=== PATIENT | female | born 1955 | race Caucasian/White ===

== ENCOUNTER → 2016-08-13 | Outpatient (CLI) | payer OTHER | LOC: FIMAGING 08:22 | PROVIDERS: ATTEND Obstetrics & Gynecology | DX: Z12.31 Encounter for screening mammogram for malignant neoplasm of breast (principal) | CPT/HCPCS: G0202 ==

== ENCOUNTER 2017-01-09 10:33 | Day surgery (SDC) | payer OTHER ==
[~2017-01-09 10:33] MED LIST: ceFAZolin 2 GM/SWFI 2 GM/20 ML SYR IVP ONE
[2017-01-09] MEDS ORDERED: LR 1,000 ML IV ONE (11:20)
[2017-01-09] MEDS ORDERED: LIDOCAINE 1% 2 ML INJ ID PRN (11:20)
[2017-01-09] MEDS ORDERED: LIDOCAINE 1% 300 MG/30 ML SDV ONE (11:21)
[2017-01-09] MEDS ORDERED: BUPIVACAINE 0.5% 30 ML SDV ONE (11:21)
[2017-01-09] MEDS ORDERED: ROPIVACAINE HCL 20 MG/10 ML INJ EP ONE (11:21)
[2017-01-09] MEDS ORDERED: BACITRACIN 50,000 UNITS/10 ML SYR IRR ONE (11:22)
[2017-01-09] MEDS ORDERED: DEXAMETHASONE 4 MG/ML VIAL ONE ×2 (11:22→13:08)
[2017-01-09] MEDS ORDERED: ROPIVACAINE HCL 150 MG/30 ML INJ ONE (11:38)
[2017-01-09] MEDS ORDERED: ceFAZolin 2 GM/SWFI 20 ML SYR IVP ONE (11:50)
[2017-01-09] MEDS ORDERED: MIDAZOLAM 2 MG/2 ML VIAL IVP ONE (11:57)
--- NOTE | 2017-01-09 11:57 | PDANEPAE ---
ANE History of Present Illness 61 year old female w/ PMHx of breast cancer (limb precautions on left upper extremity; patient did receive chemotherapy and is a known difficult IV start) presents for excision of soft tissue mass from bottom of left foot. ANE Past Medical History - Cardiovascular History Hx Hypertension: No Hx Arrhythmias: No Hx Chest Pain: No Hx Coronary Artery / Peripheral Vascular Disease: No Hx CHF / Valvular Disease: No Hx Palpitations: No Cardiovascular History Comment: HX- BBB - Pulmonary History Hx COPD: No Hx Asthma/Reactive Airway Disease: No Hx Recent Upper Respiratory Infection: No Hx Oxygen in Use at Home: No Hx Sleep Apnea: No Sleep Apnea Screening Result - Last Documented: Negative Pulmonary History Comment: EXERCISE INDUCED ASTHMA IN PAST - NONE FOR 7 YRS - Neurologic History Hx Cerebrovascular Accident: No Hx Seizures: No Hx Dementia: No - Endocrine History Hx Diabetes: Yes Hypothyroid: Yes Hyperthyroid: No Obesity: no Endocrine History Comment: HYPOTHYROID - Renal History Hx Renal Disorders: No - Liver History Hx Hepatic Disorders: No - Neurological & Psychiatric Hx Hx Neurological and Psychiatric Disorders: No - Cancer History Hx Cancer: Yes Cancer History Comment: BREAST CA. COLON CA - Congenital Disorder History Hx Congenital Disorders: No - GI History GERD: no Hx Gastrointestinal Disorders: No - Other Health History Other Health History: NEG - Chronic Pain History Chronic Pain: No - Surgical History Prior Surgeries: HYSTERECTOMY. PARTIAL COLECTOMY & RECTOCELE. RECTOCELE REPAIR. LUMPECTOMY L BREAST ANE Review of Systems Review of systems is: negative Review of Systems: - Exercise capacity Exercise capacity: >=4 METS METS (RN): 5 METS ANE Patient History - Allergies Allergies/Adverse Reactions: wheat Allergy (Intermediate, Verified 10/12/12 14:15) PUFFY, SLUGGISH aspirin [Aspirin] Allergy (Verified 06/07/10 16:43) - Home Medications Home medications: home medication list seen and reviewed Home Medications: LEVOTHYROXINE SODIUM [Tirosint 75 mcg] 75 mcg PO DAILY 11/14/12 [Last Taken Unknown] Ibuprofen 12/16/16 [Last Taken Unknown] - NPO status NPO Status: no food or drink >8 hours NPO Since - Liquids (Date): 01/09/17 NPO Since - Liquids (Time): 08:00 NPO Since - Solids (Date): 01/08/17 NPO Since - Solids (Time): 20:00 - Anes Hx Anes Hx: post operative nausea - Smoking Hx Smoking Status: Former smoker - Alcohol Use Alcohol Use: Occasionally - Family Anes Hx Family Anes Hx: neg - N/A Family Hx Anesthesia Complications: NEG ANE Labs/Vital Signs - Vital Signs Vital Signs: reviewed preoperatively; see RN documention for details Blood Pressure: 123/85 Heart Rate: 56 Respiratory Rate: 16 O2 Sat (%): 97 Height: 162.56 cm Weight: 58.06 kg ANE Physical Exam - Airway Neck exam: FROM Mallampati Score: Class 2 - Pulmonary Pulmonary: no respiratory distress - Cardiovascular Cardiovascular: regular rate and rhythym - ASA Status ASA Status: II ANE Anesthesia Plan Anesthesia Plan: MAC Total IV Anesthesia: Yes
[2017-01-09] MEDS ORDERED: SCOPOLAMINE HYDROBROMIDE 1 MG/3 DAYS PATCH TD SCH (12:00)
[2017-01-09] MEDS ORDERED: PROPOFOL/EMULSION 500 MG/50 ML BOTTLE IV ONE ×2 (12:22→12:56)
--- NOTE | 2017-01-09 12:26 | PDHPUP ---
History & Physical Update H&P update statement: This history and physical update is based on an assessment of the patient which was completed after admission or registration (within 24 hours), but prior to the surgery/procedure.
[2017-01-09] MEDS ORDERED: ONDANSETRON 4 MG/2 ML VIAL ONE (13:08)
[2017-01-09] MEDS ORDERED: HYDROCODONE/APAP 5/325 TAB PO PRN (13:14)
[2017-01-09] MEDS ORDERED: fentaNYL 100 MCG/2 ML INJ IVP PRN (13:14)
[2017-01-09] MEDS ORDERED: LR 500 ML IV PRN (13:14)
[2017-01-09] MEDS ORDERED: NALOXONE HCL 0.4 MG/ML INJ IVP PRN (13:14)
[2017-01-09] MEDS ORDERED: ONDANSETRON 4 MG/2 ML VIAL IVP PRN ×2 (13:14→13:50)
--- NOTE | 2017-01-09 13:48 | POSTOPPROG ---
Post Op Note Date of Operation: 01/09/17 Surgeon: Anya Tapia Desktop Support Technician: Grisel Tapia Pre-op Diagnosis: calcified mass plantar left foot Post-op Diagnosis: same Indication: pain Procedure: excision of mass plantar left foot Findings: Well defined calcified/osseous mass Inf/Abcess present in the surg proc area at time of surgery?: No Depth: Superfical (Skin SQ) EBL: Minimal Complications: none Specimen(s): mass, send to pathology
[2017-01-09] MEDS ORDERED: OXYCODONE/APAP 5/325 TAB PO PRN (13:50)
[2017-01-09] MEDS ORDERED: ONDANSETRON DISINTEGRATING 4 MG TAB PO PRN (13:50)
--- NOTE | 2017-01-09 13:52 | POSTANESTH ---
Post Anesthetic Evaluation Cardiovascular Status: Normal, Stable, Similar to Pre-Op Cond Respiratory Status: Normal, Stable, Similar to Pre-op Cond. Level of Consciousness/Mental Status: Can Participate in Eval, Mildly Sleepy, Arousable Pain Control: Adequate, Prn Tx Ordered Nausea/Vomiting Control: Adequate, Prn Tx Ordered Complications Possibly Related to Anesthesia: None Noted
[2017-01-09 14:56] VITALS: RESP 16; TEMP 207.5
[2017-01-09 15:08] VITALS: BP 122/75; PULSE 64; O2SAT 98
--- NOTE | 2017-01-09 23:59 | GOP ---
[f rep st] OPERATIVE REPORT DATE OF OPERATION: SURGEON: Anya Tapia DPM BIT SANDER: Marcelina Webster PREOPERATIVE DIAGNOSIS: Painful mass plantar aspect of the left foot. POSTOPERATIVE DIAGNOSIS: Painful mass plantar aspect of the left foot, mass is calcified with some trabeculation PROCEDURE PERFORMED: Excision of mass plantar aspect 2nd metatarsophalangeal joint, left foot. FINDINGS: well-defined mass with some white smooth glossy borders INDICATIONS: The patient presented to the hospital approximately an hour and a half prior to foot surgery after having been n.p.o. past midnight. The patient' s preoperative history and physical and all lab studies were reviewed and there were no contraindications to the proposed procedure. The patient was given Ancef 2 g IV 1/2-hour prior to foot surgery. DESCRIPTION OF PROCEDURE: The patient was taken to the OR and placed on the OR table in a supine position where the appropriate anesthetic agents were administered. This was supplemented with a local block to the left foot utilizing a total of 6 cc of 0.5% Marcaine plain, 0.8 cc of Naropin 0.2%, and 6 cc of 1% lidocaine plain. Anesthetic block was given to the posterior tibial nerve as it courses through the tarsal tunnel and in a Tolliver block fashion to the base of the 2nd metatarsal. Left lower extremity was then prepped and draped in the usual aseptic fashion covered with a sterile stockinette. A sterile pneumatic ankle tourniquet was applied and padded well underneath with Webril. Utilizing elevation with overlying Esmarch bandage, the left foot was exsanguinated and the tourniquet was inflated to a pressure of 225 mmHg. The foot was lowered to the orthopedic table. Attention was then directed to the plantar aspect of the 2nd metatarsal head region where an approximate 4 cm curvilinear incision was made. There was a thick callus to the plantar aspect of the 2nd metatarsal head and the incision was made medial to the thick callus, but curved laterally at the distal end of the incision and just distal to the 2nd metatarsophalangeal joint and curved laterally in a mild fashion proximal to the 2nd metatarsal head. Incision was deepened through the subcutaneous tissues to the level of the deep capsular tissues. Plantar skin incision: The incision was deepened through the subcutaneous tissues to the level of the deep capsular tissues, taking care to preserve the neurovascular structures. Any bleeders were clamped and cauterized as needed. The deep subcutaneous tissue was retracted, and a linear capsular incision was made overlying the medial aspect of the firm palpated mass. The incision was approximately 1 cm in length. The firm palpable mass became very obvious and easily identified as it protruded immediately through the incision site. It was attached to the underlying 2nd metatarsal head with a fibrous connection. The fibrous connection was released, and the mass was placed on the back table and sent for a pathologic evaluation. The mass was evaluated and measured approximately 11 mm in length and 5-7 mm in thickness, which correlated with the findings on digital x-rays where measurements were obtained. The surgical site was inspected and no other abnormal bony irregularities were palpated. The surgical site was copiously irrigated with a sterile saline bacitracin solution. The capsular tissues were reapproximated with 2-0 Vicryl. The tourniquet was released and there was immediate capillary refill to all digits and hemostasis. The deep subcutaneous tissues reapproximated with 4-0 Monocryl. The skin was reapproximated with 3-0 Prolene, utilizing interrupted horizontal mattress sutures and a few simple sutures. Steri-Strips were applied and a mildly compressive dry sterile gauze dressing with Xeroform, 4 x 4 gauze, Roberth , and Kerlix. A posterior splint was applied to protect the plantar foot and secured to the extremity with Juan Pablo wraps. Patient tolerated the procedure and anesthesia well. Transferred to the recovery room with vital signs stable and vascular status intact to the left lower extremity. In the recovery room, the patient received postoperative oral and written home care instructions. The patient is instructed on strict nonweightbearing on the forefoot, and is to utilize crutches or a walker for ambulation assist. Patient is scheduled for 1st postoperative visit in 3 days, but is to call the office earlier if questions or problems were to arise. Patient was dispensed and fitted with a cryo cuff and instructed on its usage. Patient was given a prescription for hydrocodone to take postoperatively as prescribed for pain. /[id number]/MODL and [id number]/MODL [facility]
[2017-01-12] MEDS ORDERED: PATCH REMOVAL 1 EA PATCH TD SCH (11:57)
== END 2017-01-09 15:39 | disposition home or self-care (01) ==
LOC: FSGY 10:33
PROVIDERS: ATTEND Podiatrist
PROC: 0QBP0ZZ Excision of Left Metatarsal, Open Approach (ICD-10-PCS; principal; 2017-01-09 12:00)
DX: D16.32 Benign neoplasm of short bones of left lower limb (principal); I45.10 Unspecified right bundle-branch block; E03.9 Hypothyroidism, unspecified; Z85.3 Personal history of malignant neoplasm of breast; Z85.038 Personal history of other malignant neoplasm of large intestine; Z85.828 Personal history of other malignant neoplasm of skin
CPT/HCPCS: J0690; J1100; J2250; J2405; J2704; J2795

== ENCOUNTER → 2017-08-20 | Outpatient (CLI) | payer OTHER | LOC: FIMAGING 07:45 | PROVIDERS: ATTEND Obstetrics & Gynecology Gynecology | DX: Z12.31 Encounter for screening mammogram for malignant neoplasm of breast (principal); Z85.3 Personal history of malignant neoplasm of breast; Z85.038 Personal history of other malignant neoplasm of large intestine; Z80.3 Family history of malignant neoplasm of breast ==

== ENCOUNTER → 2018-08-23 | Outpatient (CLI) | payer OTHER | LOC: FIMAGING 09:50 ==